=== PATIENT | male | born 1950 | race Two or more races ===

== ENCOUNTER 2019-08-31 15:52 | Emergency (ER) | payer BC ==
[~2019-08-31] VITALS: Ht 177.8 cm; Wt 82.5 kg
--- NOTE | 2019-08-31 16:26 | NUR ---
FIRST CONTACT WITH PT. PT HAD JACOBS CATHETER REMOVED AT 8 AM TODAY IN [place] AND HAS BEEN ONLY DRIBBLING URINE SINCE. PT C/O BLADDER PAIN. PT'S AOX4. RESPS EVEN AND UNLABORED. BP/SPO2 MONITORS IN PLACE. CALL LIGHT WITHIN REACH.
[2019-08-31] MEDS ORDERED: HYDROmorphone 1 MG/ML, 1ML INJ ONE (16:57)
[2019-08-31] MEDS ORDERED: ONDANSETRON ODT 4 MG ONE (16:57)
[2019-08-31] MEDS ORDERED: ONDANSETRON ODT 4 MG PO ONE (17:00)
[2019-08-31] MEDS ORDERED: HYDROmorphone 2 MG/ML, 1ML IM ONE (17:00)
--- NOTE | 2019-08-31 17:12 | NUR ---
PT MEDICATED PER EMAR. PT TOLERATED WELL.
--- NOTE | 2019-08-31 17:51 | NUR ---
PT'S JACOBS CATH'D USING STERILE TECHNIQUE. PT TOLERATED WELL. YELLOW URINE COMING AND COLLECTED. UA SENT.
[2019-08-31 18:12] LABS: MICROSCOPIC AUTO
--- NOTE | 2019-08-31 18:23 | NUR ---
PT RESTING IN [facility]. PT STATES"I FEEL MUCH BETTER. NO PAIN NOW." PT'S AOX4. RESPS EVEN AND UNLABORED.
--- NOTE | 2019-08-31 19:04 | NUR ---
REPORT GIVEN TO BON ROACH.
--- NOTE | 2019-08-31 19:08 | NUR ---
Break rn: Pt bedside report from Dianna monge. This rn to assume care of pt. Awaiting results for pt recheck. No immediate needs from pt or family. Call light within reach.
--- NOTE | 2019-08-31 19:27 | NUR ---
Bedside report to Courtney monge. No immediate needs from family or pt.
--- NOTE | 2019-08-31 19:27 | NUR ---
BEDSIDE REPORT AND CARE FROM BON ROACH AT THIS TIME. PT RESTING IN POSITION OF COMFORT. AWAITING RECHECK. VSS. SPOUSE AT BEDSIDE. FALL PRECAUTIONS IN PLACE. JACOBS DRAINGING PROPERLY, DENIES ANY PAIN OR DISCOMFORT.
[2019-08-31 19:30] VITALS: BP 155/88
--- NOTE | 2019-08-31 19:53 | NUR ---
REPORT FROM DOC PABLO. PER ERP, POC IS DC. PT MADE AWARE AND LEG BAG PROVIDED. PT CONCERNED THAT JACOBS BAG IS 'LEAKING'. BAG ASSESSED. NO OBVIOUS LEAKING NOTED.
--- NOTE | 2019-08-31 19:53 | NUR ---
BEDSIDE REPORT AND TRANSFER OF CARE TO DB ROACH AT THIS TIME
--- NOTE | 2019-08-31 20:20 | NUR ---
RN TO ROOM TO PROVIDE DC PAPERWORK. PT NO LONGER IN ROOM AND NO PERSONAL BELONGINGS IN ROOM. PT ASSUMED TO HAVE LEFT. PT NO LONGER AT DC OR IN LOBBY. DC PAPERWORK LEFT AT CHARGE DESK
== END 2019-08-31 20:30 | disposition home or self-care (01) ==
LOC: ED 17:25
DX: R33.9 Retention of urine, unspecified (principal)
CPT/HCPCS: 51702; 81001; 96372; 99285; J1170; Q0162